=== PATIENT | male | born 1995 | race African-American/Black ===

== ENCOUNTER 2017-10-07 16:30 | Emergency (ER) | payer BC ==
[2017-10-07 16:36] VITALS: BP 131/77
[2017-10-07] MEDS ORDERED: DEXAMETHASONE SOD PHOS INJ 10 MG/1 ML VIAL IM ONE (17:09)
--- NOTE | 2017-10-07 17:11 | ER Document Report ---
ED ENT - General Chief Complaint: Sore Throat Stated Complaint: SORE THROAT,CONGESTION,FEVER Time Seen by Provider: 10/07/17 16:43 Mode of Arrival: Ambulatory Information source: Patient TRAVEL OUTSIDE OF THE [place] IN LAST 30 DAYS: No - HPI Patient complains to provider of: Throat problem Notes: Patient is here with complaints of sore throat, nasal congestion, ear pain, cough, difficulty breathing through his nose for the last 3-4 days. States that he is felt hot, but has not actually taken his temperature to see if he had a fever. He denies any difficulty breathing or swallowing other than the fact that it hurts to swallow. No nausea, vomiting, diarrhea. No chest pain or shortness of breath. No rash. He denies any chronic medical problems. No daily medications. No rash. No abdominal pain. No known sick contacts. Pain is worse with swallowing, nothing makes it better. - Related Data Allergies/Adverse Reactions: No Known Allergies Allergy (Verified 07/20/15 16:47) Past Medical History - Social History Smoking Status: Unknown if Ever Smoked Family History: Reviewed & Not Pertinent Review of Systems - Review of Systems -: Yes All other systems reviewed and negative Physical Exam - Vital signs Vitals: Temp Pulse Resp BP Pulse Ox 98.5 F 106 H 18 131/77 H 97 10/07/17 16:34 10/07/17 16:34 10/07/17 16:34 10/07/17 16:34 10/07/17 16:34 - Notes Notes: GENERAL: alert, cooperative, nontoxic, no distress. HEAD: normocephalic, atraumatic EYES: conjunctiva pink without discharge, no external redness or swelling. EARS: no external swelling, no external redness, no mastoid redness, swelling, tenderness. Ear canals are clear without swelling or drainage. TMs pearly estrada , no redness, no bulging, normal landmarks, no perforation. Effusions behind both TMs. NOSE: atraumatic, no external swelling. clear rhinorrhea noted. MOUTH/THROAT: mucous membranes moist and pink, posterior pharynx without exudate. There is mild bilateral swelling of the tonsils. Uvula is midline. No peritonsillar abscess. No stridor. Voice is normal. No trismus or drooling. NECK: soft, supple, full range of motion, no meningismus. Anterior cervical lymphadenopathy bilaterally. CHEST: no distress, lungs clear and equal throughout. No wheezing, rales, rhonchi. CARDIAC: regular rate and rhythm, no murmur, normal capillary refill, normal pulses. No peripheral edema noted. BACK: full range of motion, no CVA tenderness. EXTREMITIES: full range of motion of all extremities. No redness, no swelling. NEURO: alert and oriented A&O3, no focal deficits, full range of motion of all extremities. PYSCH: appropriate mood, affect. Patient is cooperative. SKIN: pink, warm, dry, no rash. Course - Re-evaluation Re-evalutation: 10/07/17 17:24 Patient is nontoxic appearing with stable vitals. Here with complaints of sore throat as well as nasal congestion and cough. On exam he is noted to have some swollen and erythematous tonsils. No exudate. Uvula is midline. No peritonsillar abscess, no sign of retropharyngeal abscess. No sign of epiglottitis. The remainder of his exam is unremarkable. Rapid strep is positive. He was given a shot of Decadron as well as Bicillin here in the emergency department. Patient will be discharged home with a prescription for Naprosyn. Instructions to drink plenty of fluids. Follow-up if not better in the next 3-5 days, sooner for worsening symptoms, high fever, difficulty breathing or swelling, or for any further concerns. The patient is noted to have elevated blood pressure during today's emergency department visit. The patient was informed of this finding. The patient was instructed that this may be related to pre-hypertension and requires further evaluation with a primary care provider. The patient has no hypertensive symptoms at this time. The patient's emergency department workup and current diagnosis were explained to the patient and or family. Follow-up instructions were provided. Medications if prescribed were discussed. Instructions for when to return to the emergency department including specific worrisome symptoms were discussed with the patient and/or family. - Vital Signs Vital signs: Temp Pulse Resp BP Pulse Ox 98.5 F 106 H 18 131/77 H 97 10/07/17 16:34 10/07/17 16:34 10/07/17 16:34 10/07/17 16:34 10/07/17 16:34 Discharge - Discharge Clinical Impression: Strep pharyngitis Condition: Stable Disposition: HOME, SELF-CARE Instructions: Strep Throat ([facility]) Additional Instructions: Take medications as prescribed. Take Tylenol as needed for pain. Drink plenty fluids. Change her toothbrush in 48 hours. Follow-up if not improving in the next 3-5 days, sooner for worsening symptoms, high fever, difficulty breathing or swallowing, persistent vomiting, or for any further concerns. Your blood pressure was elevated during today's visit. Have this rechecked with your doctor. Prescriptions: Naproxen [Naprosyn] 500 mg PO BID #20 tablet Forms: Elevated Blood Pressure, Smoking Cessation Education Referrals: ERIN VALDOVINOS DO [ASSOCIATE] - Follow up as needed [facility] [Provider Group] - Follow up as needed
[2017-10-07] MEDS ORDERED: PENICILLIN G BENZATHINE 1.2 MILLION UNIT/2 ML DISP.SYRIN IM ONE (17:24)
== END 2017-10-07 17:39 | disposition home or self-care (01) ==
LOC: ER 16:30
DX: J02.0 Streptococcal pharyngitis (principal); R09.81 Nasal congestion; R05 Cough
CPT/HCPCS: 99283; 96372; 87880; J0561; J1100

== ENCOUNTER 2017-11-17 23:03 | Emergency (ER) | payer BC ==
[2017-11-17 23:21] VITALS: BP 132/84
[2017-11-17 23:30] LABS: ABSOLUTE EOSINOPHILS # (AUTO) 0.1 10^3/uL (0.0-0.6); ABSOLUTE LYMPHOCYTES (AUTO) 2.1 10^3/uL (0.5-4.7); ABSOLUTE MONOCYTES (AUTO) 0.8 10^3/uL (0.1-1.4); ABSOLUTE NEUT (AUTO) 7.9 10^3/uL (1.7-8.2); BASOPHILS % (AUTO) 0.2 % (0-2); EOSINOPHILS % (AUTO) 0.6 % (0-6); HEMATOCRIT 44.9 % (37.9-51.0); HEMOGLOBIN 14.8 g/dL (13.5-17.0); LYMPHOCYTES % (AUTO) 18.9 % (13-45); MEAN CORPUSCULAR HEMOGLOBIN 26.2 pg (27.0-33.4); MEAN CORPUSCULAR HGB CONC 32.9 g/dL (32.0-36.0); MEAN CORPUSCULAR VOLUME 80 fl (80-97); MONOCYTES % (AUTO) 7.4 % (3-13); PLATELET COUNT 262 10^3/uL (150-450); RED BLOOD COUNT 5.63 10^6/uL (4.35-5.55); RED CELL DISTRIBUTION WIDTH 13.5 % (11.5-14.0); SEGMENTED NEUTROPHILS % (AUTO) 72.9 % (42-78); TOTAL CELLS COUNTED % (AUTO) 100 %; WHITE BLOOD COUNT 10.9 10^3/uL (4.0-10.5)
[2017-11-17 23:38] LABS: APPEARANCE,URINE CLEAR; BILIRUBIN,URINE NEGATIVE (NEGATIVE); COLOR,URINE YELLOW; GLUCOSE, URINE NEGATIVE (NEGATIVE); KETONES,URINE 20 mg/dL (NEGATIVE); LEUKOCYTE ESTERASE,URINE NEGATIVE (NEGATIVE); NITRITE,URINE NEGATIVE (NEGATIVE); PROTEIN,URINE NEGATIVE (NEGATIVE); URINE SPECIFIC GRAVITY 1.026
[2017-11-17 23:42] LABS: ALANINE AMINOTRANSFERASE 27 U/L (21-72); ALBUMIN 4.7 g/dL (3.5-5.0); ALKALINE PHOSPHATASE 65 U/L (38-126); ANION GAP 14 (5-19); ASPARTATE AMINO TRANSFERASE 27 U/L (17-59); BILIRUBIN,DIRECT 0.3 mg/dL (0.0-0.4); BILIRUBIN,TOTAL 0.6 mg/dL (0.2-1.3); BLOOD UREA NITROGEN 10 mg/dL (7-20); CALCIUM 9.7 mg/dL (8.4-10.2); CARBON DIOXIDE 24 mmol/L (22-30); CHLORIDE 101 mmol/L (98-107); GLUCOSE 101 mg/dL (75-110); LIPASE 87.3 U/L (23-300); POTASSIUM 4.2 mmol/L (3.6-5.0); SODIUM 138.6 mmol/L (137-145); TOTAL PROTEIN 8.8 g/dL (6.3-8.2)
--- NOTE | 2017-11-18 00:42 | ER Document Report ---
ED General <ROSY ELDER - Last Filed: 11/18/17 00:46> - General Mode of Arrival: Ambulatory Information source: Patient TRAVEL OUTSIDE OF THE [place] IN LAST 30 DAYS: No <GABY CHILDS - Last Filed: 11/18/17 00:59> - General Chief Complaint: Rectal Bleeding Stated Complaint: RECTUM BLEEDING Time Seen by Provider: 11/18/17 00:29 Notes: Patient is a 22 year old male presenting to the emergency department complaining of rectal bleeding onset today. Patient states he did a rectal douche today with only hydrogen peroxide to cleanse his colon. Patient states after the cleanse he noticed profuse rectal bleeding and became nauseous. He states he has had 2 vomiting episodes today. He denies any fevers. (GABY CHILDS) - Related Data Allergies/Adverse Reactions: No Known Allergies Allergy (Verified 07/20/15 16:47) Past Medical History - General Information source: Patient - Social History Smoking Status: Current Some Day Smoker Cigarette use (# per day): Yes Chew tobacco use (# tins/day): No Frequency of alcohol use: Occasional Family History: Reviewed & Not Pertinent Renal/ Medical History: Denies: Hx Peritoneal Dialysis <GABY CHILDS - Last Filed: 11/18/17 00:59> Review of Systems - Review of Systems Constitutional: No symptoms reported EENT: No symptoms reported Cardiovascular: No symptoms reported Respiratory: No symptoms reported Gastrointestinal: See HPI, Nausea, Vomiting, Rectal bleeding Genitourinary: No symptoms reported Male Genitourinary: No symptoms reported Musculoskeletal: No symptoms reported Skin: No symptoms reported Hematologic/Lymphatic: No symptoms reported Neurological/Psychological: No symptoms reported -: Yes All other systems reviewed and negative <GABY CHILDS - Last Filed: 11/18/17 00:59> Physical Exam <ROSY ELDER - Last Filed: 11/18/17 00:46> - General General appearance: Appears well, Alert In distress: None - HEENT Head: Normocephalic, Atraumatic Eyes: Normal Conjunctiva: Normal Extraocular movements intact: Yes Pupils: PERRL Neck: Normal - Respiratory Respiratory status: No respiratory distress - Cardiovascular Rhythm: Regular Heart sounds: Normal auscultation Murmur: No Friction rub: No Gallop: None auscultated - Back Back: Normal - Extremities General upper extremity: Normal ROM General lower extremity: Normal ROM - Neurological Neuro grossly intact: Yes Cognition: Normal Orientation: AAOx4 [place] Coma Scale Eye Opening: Spontaneous Thi Coma Scale Verbal: Oriented Thi Coma Scale Motor: Obeys Commands Thi Coma Scale Total: 15 Speech: Normal - Psychological Associated symptoms: Normal affect, Normal mood - Skin Skin Temperature: Warm Skin Moisture: Dry Skin Color: Normal <GABY CHILDS - Last Filed: 11/18/17 00:59> - Vital signs Vitals: Temp Pulse Resp BP Pulse Ox 98.2 F 73 16 132/84 H 98 11/17/17 23:20 11/17/17 23:20 11/17/17 23:20 11/17/17 23:20 11/17/17 23:20 - Rectal Notes: Anal fissure at the 6 o'clock in the knee to chest position. (GABY CHILDS) Course - Laboratory Result Diagrams: 11/17/17 23:05 11/17/17 23:05 <ROSY ELDER - Last Filed: 11/18/17 00:46> - Laboratory Result Diagrams: 11/17/17 23:05 11/17/17 23:05 <GABY CHILDS - Last Filed: 11/18/17 00:59> - Vital Signs Vital signs: Temp Pulse Resp BP Pulse Ox 98.2 F 73 16 132/84 H 98 11/17/17 23:20 11/17/17 23:20 11/17/17 23:20 11/17/17 23:20 11/17/17 23:20 - Laboratory Laboratory results interpreted by me: 11/17/17 11/17/17 11/17/17 23:05 23:05 23:05 WBC 10.9 H RBC 5.63 H MCH 26.2 L Total Protein 8.8 H Urine Ketones 20 H Urine Urobilinogen 2.0 H Urine Ascorbic Acid 40 H Discharge <ROSY ELDER - Last Filed: 11/18/17 00:46> <GABY CHILDS - Last Filed: 11/18/17 00:59> - Discharge Clinical Impression: Anal fissure Condition: Stable Disposition: HOME, SELF-CARE Additional Instructions: Anal Fissure You have a split in the tissues of the anus, called an anal fissure. This may be due to constipation, or chronic anal irritation. The fissure causes pain during bowel movements. It may bleed when you pass stool. Treat the fissure with warm sitz baths three or four times a day. Clean the anal area carefully -- special cleansing pads (Tucks) may be helpful. Sometimes prescription suppositories are helpful in reducing pain and inflammation. A stool softener (such as Metamucil) will make bowel movements less traumatic. Eat a diet high in fiber (fruits, whole grains), and drink plenty of water. See your doctor if there is profuse bleeding, increasing pain, an enlarging mass, or fever -- or if the symptoms do not resolve after treatment. FOLLOW UP WITH [facility] IF NOT IMPROVING. RETURN IF ANY NEW OR WORSENING SYMPTOMS. Referrals: [facility] [Provider Group] - Follow up as needed Scribe Attestation: 11/18/17 00:48 I personally performed the services described in the documentation, reviewed and edited the documentation which was dictated to the scribe in my presence, and it accurately records my words and actions. (ROSY ELDER) Scribe Documentation - Scribe Written by Higinio:: Higinio Dey, 11/18/2017 00:58 acting as scribe for :: Antoine <GABY CHILDS - Last Filed: 11/18/17 00:59>
== END 2017-11-18 01:18 | disposition home or self-care (01) ==
LOC: ER 23:03
DX: K60.2 Anal fissure, unspecified (principal); K62.5 Hemorrhage of anus and rectum; R11.2 Nausea with vomiting, unspecified; F17.210 Nicotine dependence, cigarettes, uncomplicated
CPT/HCPCS: 36415; 80053; 81001; 83690; 85025; 99283